=== PATIENT | male | born 1980 | race African-American/Black ===

== ENCOUNTER 2025-03-14 15:48 | Emergency (ER) | payer OTHER, SELFPAY ==
[2025-03-14 15:52] VITALS: BP 145/91; PULSE 67; RESP 16; TEMP 36.1; O2SAT 97; BMI 22.9
[2025-03-14 17:42] VITALS: BP 131/90; PULSE 67; RESP 16; TEMP 36.1; O2SAT 97
--- NOTE | 2025-03-14 18:22 | ED.GENADULT ---
HPI - General Adult General Date Seen: 03/14/25 Chief complaint: Dental/Oral/Mouth Injury/Pain Stated complaint: hit in mouth by trailer door Time Seen by Provider: 03/14/25 17:32 History of Present Illness HPI narrative: 45-year-old gentleman presenting to the ER today with injury to his mouth. He was at work this afternoon when was accidentally struck in the mouth with the door of a trailer. He says he was opening the door to his trailer and was caught by a chhaya of wind that hit him in the mouth. He suffered a laceration on the inner surface of his upper lip. Fortunately did not injuries teeth. No or lower lip laceration. No other facial injury. No nasal injury. No LOC or headache. He is otherwise generally healthy. He is unsure of his last tetanus. He has been living here in [place] for 10 years and has not had any tetanus shots over that time frame. Had the nurses review the [place] database and there is no record of him getting a tetanus shot here. He is otherwise healthy. We think he had tetanus vaccinations when he immigrated. Related Data Home Medications ?Medication ?Instructions ?Recorded ?Confirmed No Known Home Medications 03/14/25 03/14/25 Allergies Allergy/AdvReac Type Severity Reaction Status Date / Time No Known Drug Allergies Allergy Verified 03/14/25 15:55 PFSH PFS Social History Smoking Status: Never smoker How often do you have a drink containing alcohol: never AUDIT-C Alcohol total score: 0 Non-prescribed substance use: denies use service: No Exam Narrative: Exam Narrative: Constitutional: Appears well-developed and well-nourished. Alert. Conversant. Non toxic. HENT: Head: Atraumatic. Nose: Nose normal. Mouth/Throat: He has an injury to the right side of his upper lip. There is a 1 cm laceration affecting the vermilion portion of the upper lip. Does not cross the vermilion border and extends onto the mucosal surface. It is not through and through. It gapes by about 2 mm. No active bleeding. No foreign body. There is also a smaller superficial injury to the mucosal surface. Oral mucosa is clear and moist. no trismus. Teeth are normal and uninjured. Pharynx normal. Tonsils symmetric. No tonsillar enlargement, erythema, or exudate. Eyes: Conjunctivae normal. EOM normal. Pupils equal, round, and reactive to light. No scleral icterus. Neck: Normal range of motion. Neck supple. No tracheal deviation present. Cardiovascular: Normal rate, regular rhythm. . Normal cap refill Pulmonary/Chest: Effort normal. No stridor. No respiratory distress. Musculoskeletal: RUE: Normal range of motion. No tenderness. No deformity LUE: Normal range of motion. No tenderness. No deformity RLE: Normal range of motion. No edema. No tenderness. No deformity LLE: Normal range of motion. No edema. No tenderness. No deformity Neurological: Alert and oriented to person, place, and time. Normal strength. CN II-VII intact. No sensory deficit. GCS eye subscore is 4. GCS verbal subscore is 5. GCS motor subscore is 6. Normal coordination Skin: Skin is warm and dry. No rash noted. No pallor. Normal capillary refill. Psychiatric: Normal mood. Normal affect. Const: Vital Signs, click to edit/add: Vital Signs - 24 hr 03/14/25 15:52 03/14/25 17:42 Temperature 97.0 F L 97.0 F L Pulse Rate [Pulse Oximeter] 67 67 Respiratory Rate 16 16 Blood Pressure [Ri ght Upper Arm] 145/91 H 131/90 H Pulse Oximetry 97 97 Oxygen Delivery Me thod Room Air Room Air Course Vital Signs Vital signs: Initial Vital Signs Temperature 97.0 F L 03/14/25 15:52 Temperature Source Temporal Artery Scan 03/14/25 15:52 Pulse Rate 67 03/14/25 15:52 Pulse Strength 0+ Absent 03/14/25 15:52 Respiratory Rate 16 03/14/25 15:52 Blood Pressure 145/91 H 03/14/25 15:52 Blood Pressure Mean 109 H 03/14/25 15:52 Blood Pressure Position Sitting 03/14/25 15:52 Pulse Oximetry 97 03/14/25 15:52 Oxygen Delivery Method Room Air 03/14/25 15:52 Vital Signs Temperature 97.0 F L 03/14/25 15:52 Pulse Rate 67 03/14/25 15:52 Respiratory Rate 16 03/14/25 15:52 Blood Pressure 145/91 H 03/14/25 15:52 Pulse Oximetry 97 03/14/25 15:52 Oxygen Delivery Method Room Air 03/14/25 15:52 Temperature 97.0 F L 03/14/25 17:42 Pulse Rate 67 03/14/25 17:42 Respiratory Rate 16 03/14/25 17:42 Blood Pressure 131/90 H 03/14/25 17:42 Pulse Oximetry 97 03/14/25 17:42 Oxygen Delivery Method Room Air 03/14/25 17:42 Medications Administered Medications: Generic Name Dose Route Start Last Admin Trade Name Freq PRN Reason Stop Dose Admin Diphtheria/Tetanus/Acell Pertussis 0.5 ml 03/14/25 19:09 03/14/25 19:34 Tetanus/Diphth/Pertussis 0.5 Ml Syringe IM 03/14/25 19:10 0.5 ml .ONCE ONE Administration Discontinued Medications Generic Name Dose Route Start Last Admin Trade Name Freq PRN Reason Stop Dose Admin Lidocaine/Epinephrine 20 ml 03/14/25 18:32 03/14/25 19:36 Lidocaine 1%-Epi 1:100,000 Mdv INFILTRATI 03/14/25 18:33 20 ml ONCE ONE Administration Medical Decision Making [facility] Narrative Medical decision making narrative: Findings and exam are consistent with an uncomplicated upper lip laceration which was repaired as noted above. Fortunately it is not ?through and through? and does not cross the vermilion border. It is predominantly on the vermilion portion of his upper lip and then extends down in the mucosal surface. There is no evidence at this time to suggest any associated fracture or foreign body. There is no evidence to suggest intracranial injury and patient is neurologically in tact. The patient is to follow up for suture removal as instructed in 5-7 days if they don't dissolve and fall out on their own. Indications to seek urgent reevaluation and signs of infection (including but not limited to increasing pain, redness, swelling, fevers, and drainage) were reviewed. Tetanus is updated today.. This is a clean and noncontaminated wound in which prophylactic antibiotics are not indicated. An understanding of the discharge instructions and need for follow up were verbally confirmed. Discharge Plan Discharge Clinical Impression: Laceration of lip Patient Disposition: Home, Self-Care Condition: Stable Instructions: Facial Laceration (ED) Additional Instructions: As we discussed, to care for you wound, take the following steps 1. Eat a diet of liquids and soft foods for the next 5-7 days while the stitches are in place. Avoid crunchy or hard food. 2. After you eat, gently rinse your mouth with water or saline. 3. Avoid hot coffee or cigarettes while your lip is numb. Your stitches are dissolvable. They should fall out within about 5-7 days. If they do not fall out on their own by 7 days, please come back to the ER to have them removed. Watch for signs of infection. If you notice redness, swelling, or pus coming from your wound, please come back to the ER right away. Prescriptions: No Action No Known Home Medications Follow Up/Referrals: Provider,Not a Local [Non-Staff, Family Practice] Stand Alone Forms: Work/School Release, [facility] Info Instructions Procedures Laceration Lip laceration: Pre procedure diagnosis: Right upper lip laceration Verification/time out: correct patient and correct procedure Site: lip Side (If applicable): right Size (cm): 1 Description: linear Depth: simple, single layer Local Anesthetic: lidocaine 1% and bupivacaine 0.5% Amount of anesthesia used (mL): 1.5 Pre-repair: wound explored, irrigated extensively and deep structures intact Skin layer closed with: other (5-0 fast-absorbing gut) Number of sutures: 2 Technique: simple, interrupted
[2025-03-14] MEDS: TETANUS/DIPHTH/PERTUSSIS 0.5 ML SYRINGE IM (19:34)
--- OUTSIDE RECORDS SUMMARY | 2025-03-14 19:50 | XMS_ITS | Clinical Summary ---
Author Organization [facility] Address [address] [place] [address] Care Team Providers Care Railroad Inspector Name Role Phone Pcp, No Primary Care Provider Unavailabl e Allergies No known active allergies Medications MedicationSigDispense QuantityRefillsLast FilledStart DateEnd DateStatus melatonin 10 mg tab Indications:Insomnia, idiopathicTake 1 Tablet (10 mg) by mouth at bedtime if needed (sleep). 60 Tablet 04/29/2023ctive pantoprazole (PROTONIX) 40 mg delayed-release tablet Indications:H. pylori infectionTake 1 Tablet (40 mg) by mouth once daily. 14 Tablet 04/29/2023ctive atovaquone-proguanil, 250-100 mg, (MALARONE) 250-100 mg tablet Indications:Need for malaria prophylaxisTake 1 Tablet by mouth once daily. Start 2 days before departure, continue daily while in malaria-endemic location, until 7 days after return 99 Tablet 04/29/2023ctive Camphor-Methyl Salicyl-Menthol ([place]) 3-15-5 % topical cream Indications:Burning sensation of skinApply 1 g topically to affected area(s) two times daily. 57 g 04/29/2023ctive rx diphenhydrAMINE (BENADRYL) 25 mg capsule (ED DC MED) Indications:DizzinessTake 1 Capsule (25 mg) by mouth every 6 hours if needed (Dizziness). 4 Capsule 04/30/2023ctive polyethylene glycoL (MIRALAX) 17 gram/scoop powder Indications:Constipation, unspecified constipation typeMix 1 scoop (17 g) in liquid then take by mouth once daily. 289 g 11/19/2024Active bisacodyL (DULCOLAX) 10 mg suppository Indications:Constipation, unspecified constipation typeInsert 1 Suppository (10 mg) rectally once daily. 7 Suppository 4Active traZODone (DESYREL) 150 mg tablet Indications:Insomnia, unspecified typeTake 1 Tablet (150 mg) by mouth at bedtime if needed for Sleep. 7 Tablet 4Active benzonatate 100 mg capsule Indications:Viral URITake 1-2 Capsules (100-200 mg) by mouth 3 times daily if needed for Cough. 60 Capsule 5Active Active Problems ProblemNoted DateDiagnosed DateTB lung, zjzgpr2007/22/2014 Immunizations ImmunizationAdministration DatesNext DueHepatitis B (Adult)12/24/2014,06/21/2014 ,03/18/2014Influenza, EIS912,02/24/2015MMR06/21/2014,03/18/2014Td (Age >=7 Years)06/21/2014Tdap12/24/2014,03/18/2014 Family History Medical HistoryRelationNameCommentsGood HealthBrother 5Good HealthBrother 6Good HealthBrother 7Good HealthDaughter 2Good HealthMotherGood HealthSister 4Good HealthSister 5Good HealthSister 6RelationNameStatusCommentsBrother 1AliveBrother 2AliveBrother 3AliveBrother 4AliveBrother 5Brother 6Brother 7Daughter 1Alive Daughter 2FatherDeceasedMotherAliveSister 1AliveSister 2AliveSister 3AliveSister 4Sister 5Sister 6 Social History Tobacco UseTypesPacks/DayYears UsedDateSmoking Tobacco: NeverSmokeless Tobacco: Never Tobacco Cessation:Counseling Given: Yes Alcohol UseStandard Drinks/WeekCommentsNo0 (1 standard drink = 0.6 oz pure alcohol)PHQ-2AnswerDate RecordedPHQ-2 TOTAL CSNNO614Social Connections AnswerDate RecordedFrequency of Communication with Friends and FamilyNot on file 04/04/2021Financial Resource StrainAnswerDate RecordedDifficulty of Paying Living ExpensesNot on file2Difficulty of Paying Living ExpensesNot on file04/04/2021Interpersonal SafetyAnswerDate RecordedAre you being hit, kicked, pushed or yelled at (see row info)?No02/21/2024Interpersonal Safety Abuse 12 - 18Not on file02/21/2024Interpersonal Safety Ambulatory VulnerabilityNot on file 02/21/2024Sex and Gender InformationValueDate RecordedSex Assigned at BirthNot on fileLegal PqrQptd7205/24/2014 4:21 PM CSTGender IdentityNot on fileSexual OrientationNot on fileOccupationIndustryJob Start DateJob End DateNot on fileNot on fileNot on fileNot on file Last Filed Vital Signs Vital SignReadingTime TakenCommentsBlood Qrepfdad568/8409/24/2024 1:00 PM CDT Wykow796709/24/2024 1:00 PM UNRJmkgtwugkrh76.1 ??C (97 ??F)09/24/2024 1:00 PM CDT Respiratory Nmee016409/24/2024 1:00 PM CDTOxygen Votzlmydnr47%09/24/2024 1:00 PM CDTInhaled Oxygen Concentration--Bqnfyt11.6 kg (149 lb)09/24/2024 1:00 PM CDT Pummvd332.7 cm (5' 8)02/21/2024 1:58 AM CSTBody Mass Index22.6602/21/2024 1:58 AM 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 Plan of Treatment Health MaintenanceDue DateLast DoneCommentsHPV series for age 9-45 (1 - 3-dose SCDM series)2009MI (ht and wt on same day) for age 18+01/25/2024 01/24/2023, 01/12/2022, 12/26/2019, Additional history existsDepression screening for age 12+, 02/12/2019, 07/18/2017, Additional history existsCOVID-19 vaccine series (2024- season)2024Influenza Vaccine (#1)502/09/2016, 02/24/2015Tetanus wfupppa63/, 06/21/2014, 03/18/2014Lipids for age 35-4410/81RSV vaccine for adults or (1 - 1-dose 75+ series)2057Hepatitis B series for 19+ Bphqinnlp04/22/2015, 06/21/2014, 03/18/2014HIV for age 15-34Nckmodclz69/23/2023 Hepatitis C screening for age 18-13Eorwnqolz83/23/2023neumococcal series for age 6-49Aged OutNo longer eligible based on patient's age to complete this topic Procedures Procedure NamePriorityDate/TimeAssociated DiagnosisCommentsANTI HIV 1/2Routine 01/24/2023 1:55 PM CDT Encounter for screening for HIV ANTI IIJBxfyhbe94/23/2023 1:55 PM CDT Need for hepatitis C screening test LIPID NZYBUXhuotjj06/23/2023 1:55 PM CDT Arcus senilis, unspecified laterality from Last 3 Months or Most Recently Relevant to Health Maintenance Results * ANTI HCV (01/24/2023 1:55 PM CDT)ComponentValueRef RangeTest MethodAnalysis TimePerformed AtPathologist SignatureHEPATITIS C ANTIBODYNon-Reactive Non-Koecxemr43/24/2023 3:53 PM [facility]TAL[facility] Comment:Please note, per www.CDC.gov: If a patient is known to be at high risk of HCV infection, or is symptomatic, and the physician's suspicion of HCV infection is high, HCV RNA testing is often employed and is of diagnostic value, even after an initial negative anti-HCV test result.Specimen (Source) Anatomical Location / LateralityCollection Method / VolumeCollection Time Received TimeBloodBLOOD SPECIMEN / UnknownVenipuncture / Yezggte9301/24/2023 1:55 PM CDT1 1:56 PM CDT Narrative Authorizing ProviderResult TypeResult StatusOrlando Mariely MDSEND OUTSFinal ResultPerforming OrganizationAddressCity/State/ZIP CodePhone Number [facility] [address] [place] [address], * ANTI HIV 1/2 (01/24/2023 1:55 PM CDT)ComponentValueRef RangeTest Method Analysis TimePerformed AtPathologist SignatureHIV-1/HIV-2 SCREENNon-Reactive Non-Ymsbwkop79/24/2023 5:01 PM [facility] Comment:HIV-1 p24 and HIV-1/HIV-2 Ab Not Detected.Specimen (Source)Anatomical Location / LateralityCollection Method / VolumeCollection TimeReceived Time BloodBLOOD SPECIMEN / UnknownVenipuncture / Ticlvvd6301/24/2023 1:55 PM CDT 01/24/2023 1:56 PM CDT Narrative Authorizing ProviderResult TypeResult StatusOrlandjhoana Schuster MDSEND OUTSFinal ResultPerforming OrganizationAddressCity/State/ZIP CodePhone Number [facility] [address] [place] [address], * LIPID PANEL (01/24/2023 1:55 PM CDT)ComponentValueRef RangeTest MethodAnalysis TimePerformed AtPathologist SignatureCHOLESTEROL,[id number] - 199 mg/dL 01/24/2023 2:56 PM [facility] LABORATORYComment: Cholesterol, Total Reference Ranges Desirable <200 mg/dL Borderline 200-239 mg/dL High >=240 mg/dL NTPPLECEOHTEN30<150 mg/dL01/24/2023 2:56 PM [facility] LABORATORYHDL QMGLHGQKVWG29>40 mg/dL01/24/2023 2:56 PM [facility] LABORATORYNON-HDL YPKYCHSJVJP097<145 mg/dl01/24/2023 2:56 PM [facility] LABORATORYCHOL/HDL RATIO4.26<4.501 2:56 PM [facility] LABORATORYLDL DDKTOATBBWP060<=130 mg/dL01/24/2023 2:56 PM CDT [facility] LABORATORYVLDL SYVTKZTIVOK24<=30 mg/dL01/24/2023 2:56 PM [facility] LABORATORYPROVIDER ORDERED UCITPSCDNSEQ24/23/2023 2:56 PM [facility] LABORATORYSpecimen (Source)Anatomical Location / LateralityCollection Method / VolumeCollection TimeReceived TimeBlood BLOOD SPECIMEN / UnknownVenipuncture / Lrlnhef2301/24/2023 1:55 PM CDT1 1:56 PM CDT Narrative Authorizing ProviderResult TypeResult StatusOrlidia Hurleyte MDCHEMISTRYFinal ResultPerforming OrganizationAddressCity/State/ZIP CodePhone Number [facility] [address] [place] [address] from Last 3 Months or Most Recently Relevant to Health Maintenance Insurance * Guarantor: Jacek Coronel AAccount TypeRelation to PatientDate of BirthPhone Billing AddressPersonal/TalfgxBqfy1980 [phone] [place] [address] Care Teams Team MemberRelationshipSpecialtyStart DateEnd Date Carol Fong - General09/29/23
--- OUTSIDE RECORDS SUMMARY | 2025-03-14 19:50 | XMS_ITS | Clinical Summary ---
Author Organization [facility] Address [address] [place] [address] Care Team Providers Care Pool Nurse Name Role Phone None Reported, Pcp Primary Care Provider Unavail able Source Comments Patient records contain information from all sites at [facility]. For routine questions regarding patient records, call [phone] during business hours, M-F 8:00 AM - 5:00 PM Central Time. Record requests for emergency care only can be directed to [phone] at any time.[facility] Allergies No known active allergies Medications * This document contains information received from the source organization and may not represent a complete record from that organization. MedicationSigDispense QuantityRefillsLast FilledStart DateEnd DateStatus polyethylene glycol (Miralax) 17 gram/dose oral powder Take 17 g by mouth daily. Dissolve each 17 g dose in 240 mL (8 ounces) of beverage. 238 g 02/21/2024ctive omeprazole (PriLOSEC) [address] capsule Take 1 capsule (40 mg total) by mouth daily. 180 capsule ctive traZODone (DesyreL) 50 mg tablet Take 1 tablet (50 mg total) by mouth at bedtime. 90 tablet ctive cholecalciferol (Vitamin D3) 50 mcg (2,000 Unit) tablet Take 1 tablet (50 mcg total) by mouth daily. 90 tablet ctive mefloquine (Lariam) 250 mg tablet Indications:MalariaTake 1 tablet (250 mg total) by mouth once a week. Start 1-2 weeks before travel. Take on same day of the week. Continue for 4 weeks after travel. 13 tablet 5Active Active Problems No known active problems Social History Tobacco UseTypesPacks/DayYears UsedDateSmoking Tobacco: YuralxDnlwdsnceb9Bvmz: 2009Smokeless Tobacco: Never Tobacco Cessation:Counseling Given: Not Answered Alcohol UseStandard Drinks/WeekCommentsNever0 (1 standard drink = 0.6 oz pure alcohol)Sex and Gender InformationValueDate RecordedSex Assigned at BirthNot on fileLegal SmoEmbt3010/12/2016 4:25 PM CDTGender IdentityNot on fileSexual OrientationNot on file Last Filed Vital Signs Vital SignReadingTime TakenCommentsBlood Jkpczsfi212/9602/27/2024 3:23 PM HUMAN RESOURCES PARTNER Cuqlg658502/27/2024 3:23 PM JXWAifhvcqxmuh54.8 ??C (96.4 ??F)02/27/2024 3:17 PM CSTRespiratory Wwjn703004/28/2023 3:17 PM CSTOxygen Kvqklxqmzn22%11/08/2023 1:48 PM CDTInhaled Oxygen Concentration--Gmufhn52.7 kg (149 lb 2.3 oz)02/27/2024 3:17 PM FNVMvgasf586 cm (5' 11.26)02/02/2024 3:25 PM CDTBody Mass Index20.65 02/02/2024 3:25 PM CDT Plan of Treatment Health MaintenanceDue DateLast DoneCommentsHIV Hllzimaym1982Hepatitis C Thysbfqbz1982DTaP,Tdap,and Td Vaccines (1 - Tdap)2001Hepatitis B Vaccines (1 of 3 - 19+ 3-dose series)2001HPV Vaccines (1 - 3-dose SCDM series)2009Depression Screening (Annual PHQ-2)04/04/2024OVID-19 Vaccine (1 - 2024- season)2024Influenza Vaccine (#1)2024Lipid (Cholesterol) Drnitimha74/18/717175/, 01/24/2023IPV VaccinesAged OutNo longer eligible based on patient's age to complete this topicPneumococcal vaccine (0-49 years)Aged OutNo longer eligible based on patient's age to complete this topic Procedures Procedure NamePriorityDate/TimeAssociated DiagnosisCommentsLIPID PANEL, SRoutine 02/20/2024 11:25 AM HUMAN RESOURCES PARTNER Screening Lipid from Last 3 Months or Most Recently Relevant to Health Maintenance Results * Lipid Panel (02/20/2024 11:25 AM HUMAN RESOURCES PARTNER)ComponentValueRef RangeTest Method Analysis TimePerformed AtPathologist XawkrxooeFyoxsnqipnumr24hr/dL02/20/2024 2:24 PM CSTOWATComment: ----REFERENCE VALUE---- Normal: <150 mg/dL Borderline High: 150-199 mg/dL High: 200-499 mg/dL Very High: > or =500 mg/dL Cholesterol, Tnlza839df/dL02/20/2024 2:24 PM CSTOWATComment: ----REFERENCE VALUE---- Desirable: < 200 mg/dL Borderline High: 200 - 239 mg/dL High: > or = 240 mg/dL Cholesterol, LDL, Oragsrxkmt302ix/dL02/20/2024 2:24 PM CSTOWATComment: ----REFERENCE VALUE---- Desirable: <100 mg/dL Above Desirable: 100-129 mg/dL Borderline High: 130-159 mg/dL High: 160-189 mg/dL Very High: >=190 mg/dL ----ADDITIONAL INFORMATION---- LDL cholesterol calculated using the Tenorio/NIH equation. Cholesterol, HDL44>=40 mg/dL02/20/2024 2:24 PM CSTOWATCholesterol, Non-HDL, Zqajrddnmx278hn/dL02/20/2024 2:24 PM CSTOWATComment: ----REFERENCE VALUE---- Desirable: <130 mg/dL Above Desirable: 130-159 mg/dL Borderline High: 160-189 mg/dL High: 190-219 mg/dL Very High: > or =220 mg/dL Fasting (8 HR or more)Yes02/20/2024 11:25 AM CSTOWATSpecimen (Source)Anatomical Location / LateralityCollection Method / VolumeCollection TimeReceived TimeBlood (Blood, Venous)02/20/2024 11:25 AM CST02/20/2024 1:18 PM HUMAN RESOURCES PARTNER Narrative Authorizing ProviderResult TypeResult StatusMykiki Magana M.D.LAB BLOOD ADD-ON Final ResultPerforming OrganizationAddressCity/State/ZIP CodePhone Number [facility] [address] [place] [address], [place] [employer] [facility] [place] [address] [place] [address] from Last 3 Months or Most Recently Relevant to Health Maintenance Insurance Care Teams Team MemberRelationshipSpecialtyStart DateEnd Date None Reported, Pcp [facility]
--- OUTSIDE RECORDS SUMMARY | 2025-03-14 19:50 | XMS_ITS | Patient Health Record ---
Author Organization [facility] Address [address] [place] [address] Care Team Providers Care Floor Supervisor Name Role Phone Rohan Carranza Primary Care Provider Allergies No Known Allergies Reason For Referral No Information Social History Tobacco Use: Social History Observation Description Date Details (start date - stop date) Never Smoker NA - NA Social History Tobacco Use:Social InfoQuestionAnswerNotesTobacco Use/SmokingAre you anonsmoker Plan Of Treatment Pending Test Test Name Order Date HELICOBACTER PYLORI, UREA BREATH TEST(3 years and older) 01/26/2022 Insurance Providers Payer Name Payer Address Payer Phone Subscriber Number Group Number Insured Name Patient Relationship to Insured Coverage Start Date Coverage End Date [employer] of [place]/[facility] [address] [address] [place] [address] [phone] [id number] Ivan MERRILL - patient is the [id number] 2021[employer] Medicaid [id number] [place], [place] [id number] Ivan MERRILL - patient is the [id number] 2021
== END 2025-03-14 19:47 | disposition home or self-care (01) ==
LOC: ED 19:48
PROVIDERS: Emergency Provider Emergency Medicine; PCP Family Medicine
DX: S01.511A Laceration without foreign body of lip, initial encounter (principal); W20.8XXA Other cause of strike by thrown, projected or falling object, initial encounter; Z23 Encounter for immunization
CPT/HCPCS: 12011; 90471; 90715; 99282; 99283